=== PATIENT | male | born 1975 | race Two or more races ===

== ENCOUNTER 2016-09-12 15:08 | Emergency (ER) | payer SELFPAY ==
[~2016-09-12] VITALS: Ht 180.3 cm; Wt 85.6 kg
[~2016-09-12 15:08] MED LIST: FAMO-79 PO; MULT-516 PO
[2016-09-12] MEDS ORDERED: SODIUM CHLORIDE 0.9% 1,000ML IVBOLUS ONE (15:30)
[2016-09-12] MEDS ORDERED: SODIUM CHLORIDE FLUSH 10ML SYR IVF ONE (15:30)
[2016-09-12] MEDS ORDERED: ONDANSETRON 2MG/ML, 2ML IVPush ONE (15:30)
[2016-09-12] MEDS ORDERED: MORPHINE SULFATE 4 MG/ML, 1ML IVPush PRN (15:30)
[2016-09-12 16:03] LABS: ASPARTATE AMINO TRANSFERASE 35 U/L (15-37); BLOOD UREA NITROGEN 8 mg/dL (7-18)
[2016-09-12] MEDS ORDERED: ONDANSETRON 2MG/ML, 2ML ONE (17:09)
[2016-09-12] MEDS ORDERED: MORPHINE SULFATE 4 MG/ML, 1ML ONE (17:10)
[2016-09-12] MEDS ORDERED: OMNIPAQUE 350 MG/ML, 100ML BOTTLE ONE (18:18)
[2016-09-12 18:57] VITALS: BP 138/86
== END 2016-09-12 19:19 | disposition home or self-care (01) ==
LOC: ED 15:56
DX: R10.13 Epigastric pain (principal); K42.9 Umbilical hernia without obstruction or gangrene; Z90.89 Acquired absence of other organs
CPT/HCPCS: 36415; 74177; 80053; 81003; 83690; 85025; 96361; 96374; 96375; 99285; J2405; J7030; Q9967

== ENCOUNTER 2019-10-17 05:50 | Inpatient (IN) | payer MEDICAID ==
[~2019-10-17] VITALS: Ht 180.3 cm; Wt 95.1 kg
[2019-10-17 06:31] LABS: BASOPHILS # (AUTO) 0.03 x10^3/uL (0-0.1); BASOPHILS % (AUTO) 0 % (0-1); EOSINOPHILS % (AUTO) 0 % (1-7); LYMPHOCYTES # (AUTO) 0.87 x10^3/uL (1-3.4); LYMPHOCYTES % (AUTO) 7 % (22-44); MD NO; MEAN CORPUSCULAR HEMOGLOBIN 34.1 pg (27.5-34.5); MEAN CORPUSCULAR HGB CONC 33.6 g/dL (33.2-36.2); MEAN PLATELET VOLUME 9.2 fL (7.4-10.4); MONOCYTES # (AUTO) 0.82 x10^3/uL (0.2-0.8); MONOCYTES % (AUTO) 7 % (2-9); NEUTROPHILS # (AUTO) 10.28 x10^3/uL (1.8-6.8); NEUTROPHILS % (AUTO) 86 % (42-75); PLATELET COUNT 187 x10^3/uL (130-400); RED BLOOD COUNT 4.99 x10^6/uL (4.38-5.82); RED CELL DISTRIBUTION WIDTH 13.1 % (9.4-14.8)
[2019-10-17 06:43] LABS: ALANINE AMINOTRANSFERASE 36 U/L (12-78); ANION GAP 10 mmol/L (5-15); CALCIUM 8.6 mg/dL (8.5-10.1); CHLORIDE 102 mmol/L (98-107); CREATININE 0.73 mg/dL (0.7-1.3)
[2019-10-17 06:45] LABS: D-DIMER (DIC) 0.46 ug/mlFEU (0.00-0.52); PROTIME 11.8 Seconds (9.6-11.5)
[2019-10-17 06:50] LABS: ALKALINE PHOSPHATASE 139 U/L (45-117); BILIRUBIN,TOTAL 1.2 mg/dL (0.2-1.0); TOTAL PROTEIN 7.7 g/dL (6.4-8.2)
--- NOTE | 2019-10-17 06:55 | NUR ---
Report given to Jesus Alberto ROPER.
[2019-10-17] MEDS ORDERED: MELATONIN 5 MG TABLET PO PRN (08:00)
[2019-10-17] MEDS ORDERED: hydrALAzine 20 MG/ML, 1ML IVPush PRN (08:00)
[2019-10-17] MEDS ORDERED: AZITHROMYCIN 500 MG in SODIUM CHLORIDE 0.9% 250 ML IVPB ONE (08:00)
[2019-10-17] MEDS ORDERED: ONDANSETRON 2MG/ML, 2ML IVPush PRN (08:00)
[2019-10-17] MEDS ORDERED: ONDANSETRON ODT 4 MG PO PRN (08:00)
[2019-10-17] MEDS ORDERED: SODIUM CHLORIDE FLUSH 10ML SYR IVF PRN (08:00)
[2019-10-17] MEDS ORDERED: BUTALB/APAP/CAFFEINE 50MG/325MG/40MG PO PRN (08:00)
[2019-10-17] MEDS ORDERED: BACLOFEN 10 MG TABLET PO PRN (08:00)
[2019-10-17] MEDS ORDERED: ACETAMINOPHEN 325 MG TABLET PO PRN (08:00)
[2019-10-17] MEDS ORDERED: LACTATED RINGERS 1,000 ML IV ONE (08:00)
[2019-10-17] MEDS ORDERED: LABETALOL 5MG/ML, 20ML IVPush PRN (08:00)
[2019-10-17] MEDS ORDERED: DEXAMETHASONE 4 MG TABLET ONE (08:41)
[2019-10-17] MEDS: DEXAMETHASONE 4 MG TABLET PO SCH ×2 (08:53→17:00)
[2019-10-17] MEDS ORDERED: CEFTRIAXONE PMX 1GM/50ML 50 ML IVPB ONE (09:00)
[2019-10-17] MEDS: SENNA/DOCUSATE TABLET PO SCH (09:00)
[2019-10-17 09:59] VITALS: BP 116/77
[2019-10-17] MEDS: ZINC SULFATE 220 MG CAPSULE PO SCH (10:21)
[2019-10-17] MEDS: CHOLECALCIFEROL 5,000u TAB PO SCH (10:21)
[2019-10-17] MEDS: ENOXAPARIN 100 MG/ML SQ SCH ×2 (10:21→21:33)
[2019-10-17] MEDS: MULTIVITS,STRESS FORMULA 1 TABLET PO SCH (10:21)
[2019-10-17] MEDS: FLUTICASONE/VILANTEROL 100-25MCG/INH INH SCH (10:22)
[2019-10-17] MEDS: ASCORBATE SODIUM 3,000 MG in SODIUM CHLORIDE 0.9% 250 ML IVPB SCH ×3 (11:11→22:27)
[2019-10-17 12:17] VITALS: BP 136/97
[2019-10-17 19:19] VITALS: BP 105/69
[2019-10-18 00:52] VITALS: BP 121/82
[2019-10-18 05:04] LABS: BASOPHILS # (AUTO) 0.01 x10^3/uL (0-0.1); BASOPHILS % (AUTO) 0 % (0-1); EOSINOPHILS % (AUTO) 0 % (1-7); LYMPHOCYTES # (AUTO) 0.86 x10^3/uL (1-3.4); LYMPHOCYTES % (AUTO) 9 % (22-44); MD NO; MEAN CORPUSCULAR HEMOGLOBIN 34.2 pg (27.5-34.5); MEAN CORPUSCULAR HGB CONC 33.3 g/dL (33.2-36.2); MEAN PLATELET VOLUME 8.9 fL (7.4-10.4); MONOCYTES # (AUTO) 0.39 x10^3/uL (0.2-0.8); MONOCYTES % (AUTO) 4 % (2-9); NEUTROPHILS # (AUTO) 8.02 x10^3/uL (1.8-6.8); NEUTROPHILS % (AUTO) 86 % (42-75); PLATELET COUNT 245 x10^3/uL (130-400); RED BLOOD COUNT 4.61 x10^6/uL (4.38-5.82); RED CELL DISTRIBUTION WIDTH 13.3 % (9.4-14.8)
[2019-10-18 05:16] LABS: CHLORIDE 105 mmol/L (98-107)
[2019-10-18] MEDS: ASCORBATE SODIUM 3,000 MG in SODIUM CHLORIDE 0.9% 250 ML IVPB SCH ×3 (05:17→17:53)
[2019-10-18 05:23] LABS: ALANINE AMINOTRANSFERASE 25 U/L (12-78); ALBUMIN 2.6 g/dL (3.4-5.0); ALKALINE PHOSPHATASE 123 U/L (45-117); ANION GAP 9 mmol/L (5-15); BILIRUBIN,TOTAL 0.9 mg/dL (0.2-1.0); CALCIUM 8.4 mg/dL (8.5-10.1); CREATININE 0.69 mg/dL (0.7-1.3); TOTAL PROTEIN 7.5 g/dL (6.4-8.2)
[2019-10-18 08:14] VITALS: BP 119/79
[2019-10-18] MEDS: SENNA/DOCUSATE TABLET PO SCH (09:00)
[2019-10-18] MEDS: DEXAMETHASONE 4 MG TABLET PO SCH ×2 (09:46→16:38)
[2019-10-18] MEDS: FLUTICASONE/VILANTEROL 100-25MCG/INH INH SCH (09:46)
[2019-10-18] MEDS: ZINC SULFATE 220 MG CAPSULE PO SCH (09:47)
[2019-10-18] MEDS: CHOLECALCIFEROL 5,000u TAB PO SCH (09:48)
[2019-10-18] MEDS: ENOXAPARIN 100 MG/ML SQ SCH ×2 (09:49→20:38)
[2019-10-18] MEDS: MULTIVITS,STRESS FORMULA 1 TABLET PO SCH (11:42)
[2019-10-18 15:17] VITALS: BP 122/78
[2019-10-18] MEDS: AZITHROMYCIN 250 MG TABLET PO SCH (16:37)
[2019-10-18] MEDS: CEFTRIAXONE PMX 1GM/50ML 50 ML IV SCH (16:38)
[2019-10-18 18:54] VITALS: BP 133/89
[2019-10-18 23:58] VITALS: BP 133/78
[2019-10-19] MEDS: ASCORBATE SODIUM 3,000 MG in SODIUM CHLORIDE 0.9% 250 ML IVPB SCH ×4 (00:39→17:52)
[2019-10-19] MEDS: CEFTRIAXONE PMX 1GM/50ML 50 ML IV SCH ×2 (05:05→16:43)
[2019-10-19 05:31] LABS: BASOPHILS # (AUTO) 0.01 x10^3/uL (0-0.1); BASOPHILS % (AUTO) 0 % (0-1); EOSINOPHILS % (AUTO) 0 % (1-7); LYMPHOCYTES # (AUTO) 0.93 x10^3/uL (1-3.4); LYMPHOCYTES % (AUTO) 9 % (22-44); MD NO; MONOCYTES # (AUTO) 0.57 x10^3/uL (0.2-0.8); MONOCYTES % (AUTO) 6 % (2-9); NEUTROPHILS # (AUTO) 8.87 x10^3/uL (1.8-6.8); NEUTROPHILS % (AUTO) 86 % (42-75); PLATELET COUNT 269 x10^3/uL (130-400); RED BLOOD COUNT 4.59 x10^6/uL (4.38-5.82); RED CELL DISTRIBUTION WIDTH 13.1 % (9.4-14.8)
[2019-10-19 05:41] LABS: CHLORIDE 111 mmol/L (98-107)
[2019-10-19 05:48] LABS: ALANINE AMINOTRANSFERASE 26 U/L (12-78); ALBUMIN 2.6 g/dL (3.4-5.0); ALKALINE PHOSPHATASE 119 U/L (45-117); ANION GAP 8 mmol/L (5-15); BILIRUBIN,TOTAL 0.9 mg/dL (0.2-1.0); CALCIUM 9.2 mg/dL (8.5-10.1); CREATININE 0.68 mg/dL (0.7-1.3)
[2019-10-19 08:08] VITALS: BP 135/89
[2019-10-19] MEDS: ENOXAPARIN 100 MG/ML SQ SCH ×2 (08:48→21:07)
[2019-10-19] MEDS: CHOLECALCIFEROL 5,000u TAB PO SCH (08:48)
[2019-10-19] MEDS: ZINC SULFATE 220 MG CAPSULE PO SCH (08:48)
[2019-10-19] MEDS: MULTIVITS,STRESS FORMULA 1 TABLET PO SCH (08:48)
[2019-10-19] MEDS: DEXAMETHASONE 4 MG TABLET PO SCH ×2 (08:49→16:39)
[2019-10-19] MEDS: FLUTICASONE/VILANTEROL 100-25MCG/INH INH SCH (08:50)
[2019-10-19] MEDS: AZITHROMYCIN 250 MG TABLET PO SCH (08:55)
[2019-10-19] MEDS: SENNA/DOCUSATE TABLET PO SCH (08:59)
[2019-10-19 12:16] VITALS: BP 148/93
[2019-10-19 18:37] VITALS: BP 146/86
[2019-10-20] MEDS: ASCORBATE SODIUM 3,000 MG in SODIUM CHLORIDE 0.9% 250 ML IVPB SCH ×3 (00:24→11:47)
[2019-10-20 00:27] VITALS: BP 120/74
[2019-10-20] MEDS: CEFTRIAXONE PMX 1GM/50ML 50 ML IV SCH ×2 (05:19→15:26)
[2019-10-20 07:41] VITALS: BP 145/93
[2019-10-20] MEDS: SENNA/DOCUSATE TABLET PO SCH (08:20)
[2019-10-20] MEDS: ZINC SULFATE 220 MG CAPSULE PO SCH (08:20)
[2019-10-20] MEDS: CHOLECALCIFEROL 5,000u TAB PO SCH (08:21)
[2019-10-20] MEDS: AZITHROMYCIN 250 MG TABLET PO SCH (08:21)
[2019-10-20] MEDS: FLUTICASONE/VILANTEROL 100-25MCG/INH INH SCH (08:22)
[2019-10-20] MEDS: DEXAMETHASONE 4 MG TABLET PO SCH ×2 (08:23→15:26)
[2019-10-20] MEDS: MULTIVITS,STRESS FORMULA 1 TABLET PO SCH (08:28)
[2019-10-20] MEDS: ENOXAPARIN 100 MG/ML SQ SCH (08:34)
[2019-10-20] MEDS ORDERED: THIAMINE 100MG TABLET PO SCH (09:00)
[2019-10-20 14:23] VITALS: BP 153/94
== END 2019-10-20 17:10 | disposition home or self-care (01) | DRG 871 ==
LOC: ED 08:22 → EDIP 08:40 → 4NW 09:26 → 3N 10-18 16:49
PROVIDERS: ADMIT Family Medicine; ATTEND Hospitalist
DX: A41.89 Other specified sepsis (principal); J12.89 Other viral pneumonia; R65.21 Severe sepsis with septic shock; U07.1 COVID-19; E87.1 Hypo-osmolality and hyponatremia; D75.89 Other specified diseases of blood and blood-forming organs; R09.02 Hypoxemia; T38.0X5A Adverse effect of glucocorticoids and synthetic analogues, initial encounter; Y92.89 Other specified places as the place of occurrence of the external cause; Z90.49 Acquired absence of other specified parts of digestive tract; Z87.891 Personal history of nicotine dependence
CPT/HCPCS: 31500; 36415; 71045; 80053; 82607; 82728; 83605; 83615; 83735; 84145; 85025; 85049; 85379; 85384; 85610; 85730; 86140; 87040; 87635; 93005; 96374; G0378; J0456; J0696; J1650; J7050; J7120